=== PATIENT | male | born 1985 | race African-American/Black ===

== ENCOUNTER 2022-09-04 15:39 | Outpatient (CLI) | payer OTHER | END 2022-09-04 19:42 | disposition home or self-care (01) | LOC: RAD 15:39 | PROVIDERS: ATTEND Nurse Practitioner Family | DX: M79.641 Pain in right hand (principal); S69.91XA Unspecified injury of right wrist, hand and finger(s), initial encounter; Y92.89 Other specified places as the place of occurrence of the external cause ==